=== PATIENT | male | born 1930 | race American Indian/Alaskan Native ===

== ENCOUNTER 2018-01-03 11:21 | Inpatient (IN) | payer MEDICARE ==
--- NOTE | 2018-01-03 12:10 | C.PDOC ---
History Of Present Illness 87 y/o male,w/PMhx of HTN, presents to the ER for evaluation after he was referred to the ER by his PMD, Dr. Bell secondary to bradycardia. Patient states that he went to Dr. Bell for a routine check up today and he was found to have bradycardia. Denies having CP, SOB, nausea, vomiting, diarrhea, and recent changes in medications. Time Seen by Provider: 01/03/18 11:37 Chief Complaint (Nursing): Medical Clearance History Per: Patient History/Exam Limitations: no limitations Onset/Duration Of Symptoms: Hrs Current Symptoms Are (Timing): Still Present Severity: Moderate Past Medical History Reviewed: Historical Data, Nursing Documentation, Vital Signs Vital Signs: Last Vital Signs Temp 98.7 F 01/03/18 11:25 Pulse 46 L 01/03/18 11:25 Resp 16 01/03/18 11:25 BP 198/89 H 01/03/18 11:25 Pulse Ox 97 01/03/18 12:34 - Medical History PMH: HTN Surgical History: No Surg Hx Family History: States: No Known Family Hx - Social History Hx Alcohol Use: Yes Hx Substance Use: No Review Of Systems Except As Marked, All Systems Reviewed And Found Negative. Cardiovascular: Positive for: Other (bradycardia). Negative for: Chest Pain Respiratory: Negative for: Shortness of Breath Gastrointestinal: Negative for: Nausea, Vomiting, Diarrhea Physical Exam - Physical Exam Appears: Non-toxic, No Acute Distress Skin: Normal Color, Warm, Dry Head: Atraumatic, Normacephalic Eye(s): bilateral: Normal Inspection Nose: Normal Oral Mucosa: Moist Neck: Supple Chest: Symmetrical Cardiovascular: Rhythm Irregular (bradycardia) Respiratory: Normal Breath Sounds, No Rales, No Rhonchi, No Wheezing Gastrointestinal/Abdominal: Normal Exam, Soft, No Tenderness, No Guarding, No Rebound Extremity: Normal ROM Neurological/Psych: Oriented x3, Normal Speech ED Course And Treatment - Laboratory Results Result Diagrams: 01/03/18 11:55 01/03/18 11:55 O2 Sat by Pulse Oximetry: 97 Medical Decision Making Medical Decision Making: Assessment: Bradycardia Plan: --Labs --CXR Updates: Case discussed with Dr. Bell. Patient will be admitted to [facility] under the service of . Disposition Discussed With : Helio Bell Doctor Will See Patient In The: Hospital Counseled Patient/Family Regarding: Studies Performed, Diagnosis - Disposition Disposition: HOSPITALIZED Disposition Time: 12:10 Condition: FAIR - Clinical Impression Clinical Impression: Bradycardia - Scribe Statement The provider has reviewed the documentation as recorded by the Scribe Wojciech Luther Provider Attestation: All medical record entries made by the Scribe were at my direction and personally dictated by me. I have reviewed the chart and agree that the record accurately reflects my personal performance of the history, physical exam, medical decision making, and the department course for this patient. I have also personally directed, reviewed, and agree with the discharge instructions and disposition.
[2018-01-03 12:15] LABS: BASO % 0.9 % (0.0-2.0); EOS # 0.2 K/uL (0.0-0.7); EOS % 5.1 % (0.0-4.0); HEMOGLOBIN 13.4 g/dL (12.0-18.0); LYMPH # 1.6 K/uL (1.0-4.3); LYMPH % 41.2 % (20.0-40.0); MEAN CELL VOLUME 84.5 fL (80.0-94.0); MEAN CORPUSCULAR HEMOGLOBIN 28.6 pg (27.0-31.0); MEAN CORPUSCULAR HGB CONC 33.8 g/dL (33.0-37.0); MEAN PLATELET VOLUME 7.7 fL (7.2-11.7); MONO # 0.4 K/uL (0.0-0.8); MONO % 11.2 % (0.0-10.0); NEUT # 1.6 K/uL (1.8-7.0); NEUT % 41.6 % (50.0-75.0); NRBC % 0.1 % (0.0-2.0); RBC 4.68 Mil/uL (4.40-5.90); RED CELL DISTRIBUTION WIDTH 14.3 % (11.5-14.5); WHITE BLOOD COUNT 3.9 K/uL (4.8-10.8)
[2018-01-03 12:23] LABS: INR 1.6; PROTHROMBIN TIME 17.4 SECONDS (9.7-12.2)
[2018-01-03 12:32] LABS: GFR AFRICAN-AMERICAN > 60; GFR NON-AFRICAN AMERICAN > 60
[2018-01-03 12:34] LABS: ALB/GLOB RATIO 1.4 (1.0-2.1); ALBUMIN 4.3 g/dL (3.5-5.0); ALT/SGPT 12 U/L (21-72); AST/SGOT 32 U/L (17-59); BLOOD UREA NITROGEN 11 mg/dL (9-20)
[2018-01-03 12:42] LABS: B-TYPE NATRIURETIC PEPTIDE 404 pg/mL (0-900)
--- NOTE | 2018-01-03 13:45 | RAD ---
PROCEDURE: CHEST RADIOGRAPH, 1 VIEW HISTORY: Shortness of breath COMPARISON: None available. FINDINGS: LUNGS: The lungs are well inflated and clear. PLEURA: No pneumothorax or pleural fluid seen. CARDIOVASCULAR: Normal. OSSEOUS STRUCTURES: There is diffuse bone demineralization. There are old fracture deformities in the left mid posterior ribs. VISUALIZED UPPER ABDOMEN: Normal. OTHER FINDINGS: None. IMPRESSION: No active pulmonary disease.
[2018-01-03 19:56] LABS: CK-MB 0.65 ng/mL (0.0-3.38); TROPONIN I 0.017 ng/mL (0.00-0.120)
--- NOTE | 2018-01-03 23:47 | CP.PCM.HP ---
History of Present Illness - History of Present Illness History of Present Illness: 87 y/o male,w/PMhx of HTN, presents to the ER for evaluation after he was referred to the ER by his PMD, Dr. Bell secondary to bradycardia. Patient states that he went to Dr. Bell for a routine check up today and he was found to have bradycardia. Denies having CP, SOB, nausea, vomiting, diarrhea, and recent changes in medications. Past Patient History - Past Social History Smoking Status: Never Smoked - CARDIAC Hx Hypertension: Yes - PSYCHIATRIC Hx Substance Use: No Meds Allergies/Adverse Reactions: Allergies Allergy/AdvReac Type Severity Reaction Status Date / Time No Known Allergies Allergy Verified 01/03/18 11:28 Results - Vital Signs Recent Vital Signs: Last Vital Signs Temp 98.0 F 01/03/18 15:25 Pulse 53 L 01/03/18 18:00 Resp 20 01/03/18 15:25 BP 169/85 H 01/03/18 15:25 Pulse Ox 99 01/03/18 15:25 - Labs Result Diagrams: 01/03/18 11:55 01/03/18 11:55 Labs: Laboratory Results - last 24 hr 01/03/18 01/03/18 01/03/18 11:55 11:55 11:55 WBC 3.9 L RBC 4.68 Hgb 13.4 Hct 39.6 MCV 84.5 MCH 28.6 MCHC 33.8 RDW 14.3 Plt Count 168 MPV 7.7 Neut % (Auto) 41.6 L Lymph % (Auto) 41.2 H Cloud % (Auto) 11.2 H Eos % (Auto) 5.1 H Baso % (Auto) 0.9 Neut # (Auto) 1.6 L Lymph # (Auto) 1.6 Cloud # (Auto) 0.4 Eos # (Auto) 0.2 Baso # (Auto) 0.0 PT 17.4 H INR 1.6 APTT 70 H Sodium 141 Potassium 4.5 Chloride 104 Carbon Dioxide 30 Anion Gap 12 BUN 11 Creatinine 0.8 Est GFR ( Amer) > 60 Est GFR (Non-Af Amer) > 60 Random Glucose 114 H Calcium 9.0 Total Bilirubin 1.3 AST 32 ALT 12 L Alkaline Phosphatase 62 Total Creatine Kinase CK-MB (Mass) Troponin I 0.0160 NT-Pro-B Natriuret Pep 404 Total Protein 7.3 Albumin 4.3 Globulin 3.0 Albumin/Globulin Ratio 1.4 Prostate Specific Ag TSH 3rd Generation 01/03/18 19:24 WBC RBC Hgb Hct MCV MCH MCHC RDW Plt Count MPV Neut % (Auto) Lymph % (Auto) Cloud % (Auto) Eos % (Auto) Baso % (Auto) Neut # (Auto) Lymph # (Auto) Cloud # (Auto) Eos # (Auto) Baso # (Auto) PT INR APTT Sodium Potassium Chloride Carbon Dioxide Anion Gap BUN Creatinine Est GFR ( Amer) Est GFR (Non-Af Amer) Random Glucose Calcium Total Bilirubin AST ALT Alkaline Phosphatase Total Creatine Kinase 93 CK-MB (Mass) 0.65 Troponin I 0.0170 NT-Pro-B Natriuret Pep Total Protein Albumin Globulin Albumin/Globulin Ratio Prostate Specific Ag 7.22 H TSH 3rd Generation 1.99
[2018-01-04 00:52] LABS: CK-MB 0.52 ng/mL (0.0-3.38); TROPONIN I 0.022 ng/mL (0.00-0.120)
--- NOTE | 2018-01-04 04:30 | CON ---
DATE: 01/03/2018 CARDIOLOGY CONSULTATION REASON FOR CONSULTATION: Sinus bradycardia. HISTORY OF PRESENT ILLNESS: The patient is an 87 years old male who has a history of hypertension, no known prior cardiac history who was referred by Dr. Bell from his office because of hypertension and sinus bradycardia. The patient himself denies any history of dizziness or syncope. The patient's visit to Dr. Bell's office was months, and he had no medical urgency that made him to present to the office. SOCIAL HISTORY: The patient is a nonsmoker. He used to drink in the past. He will go up on a farm in [place], and now he is living in [place] with his nephew. MEDICATIONS: The patient's home medications include simvastatin 10 mg once a day, Pepcid 20 mg once a day, valsartan/hydrochlorothiazide 160/12.5 mg once a day, Pradaxa 150 mg once a day, tramadol 50 mg once a day, metoprolol 50 mg p.o. twice a day. REVIEW OF SYSTEMS: No nausea or vomiting. No fever or chills. No dizziness or syncope. No retrosternal chest pain. PHYSICAL EXAMINATION: GENERAL: The patient is an elderly male who does not appear to be in acute distress. VITAL SIGNS: Blood pressure 169/85, heart rate 48, temperature 98, and respirations 20. HEENT: Normocephalic. CHEST: Clear. HEART: S1, S2 are regular. ABDOMEN: Soft. EXTREMITIES: No edema. LABORATORY DATA: INR is 1.6, PTT 70. SMA-7: Sodium 141, potassium 4.5, chloride 104, CO2 of 30, glucose 114, BUN 11, creatinine 0.8. One set of troponin is negative. Hemoglobin and hematocrit 13.4 and 39.6, white count 3.9, and platelet count 168,000. EKG reveals sinus bradycardia at the rate of 44 and anterolateral ischemic T-wave changes. ASSESSMENT: 1. Uncontrolled hypertension. 2. Sinus bradycardia, could be iatrogenic. 3. Ischemic anterolateral EKG changes consist underlying coronary artery disease. 4. Questionable history of atrial fibrillation. The patient is on Pradaxa at home 150 mg daily. 5. History of arthritis. RECOMMENDATIONS: Discontinue Lopressor. Continue simvastatin. Resume valsartan/hydrochlorothiazide. Obtain TSH level. Schedule the patient for an echocardiogram. Obtain one more set of troponin and start Lovenox 30 mg subcutaneously daily. Woodrow Sosa MD
[2018-01-04] MEDS: FINASTERIDE 5 MG PO SCH (09:42)
[2018-01-04] MEDS: LOSARTAN 100MG PO SCH (09:42)
[2018-01-04] MEDS: TIMOLOL MALEATE 0.5% OD SCH (09:43)
[2018-01-04] MEDS: Dorzolamide 2% Opht Sol 10ml OU SCH ×3 (09:43→17:34)
[2018-01-04] MEDS: LATANOPROST OD SCH (09:44)
[2018-01-04 16:15] VITALS: RESP 20
[2018-01-04] MEDS: Rosuvastatin Calcium 2.5 mg Tab PO SCH (21:31)
--- NOTE | 2018-01-04 23:29 | CARD ---
APPROVED REPORT EKG Measurement Heart [id number] [place] [id number] [id number] <Conclusion> Marked sinus bradycardia Left anterior fascicular block ST & T wave abnormality, consider anterolateral ischemia Abnormal ECG
--- NOTE | 2018-01-04 23:45 | CARD ---
APPROVED REPORT EKG Measurement Heart [id number] [id number] <Conclusion> Sinus bradycardia Possible Left atrial enlargement Left axis deviation Left ventricular hypertrophy with repolarization abnormality Abnormal ECG
--- NOTE | 2018-01-04 23:56 | PN ---
DATE: 01/04/2018 FOLLOWUP SUBJECTIVE: The patient denies any dizziness. The patient is bradycardic in the 50s. PHYSICAL EXAMINATION: VITAL SIGNS: Blood pressure 151/99, heart rate 60, temperature 98.3, respirations 20. HEENT: Normocephalic. CHEST: Clear. HEART: S1, S2 are regular. ABDOMEN: Soft. EXTREMITIES: No edema. LABORATORY DATA: Three sets of troponins are negative. Prostate-specific antigen is elevated at 7.22. ASSESSMENT: 1. Uncontrolled hypertension. 2. Sinus bradycardia. The patient was on oral beta roshni agent at home and currently on timolol eyedrops. 3. History of paroxysmal atrial fibrillation in the past. 4. Abnormal EKG with evidence of anterolateral ischemic EKG changes. RECOMMENDATIONS: Continue Cozaar 100 mg daily which was increased today. Continue Crestor 2.5 mg once a day, hydrochlorothiazide 12.5 mg daily, Pepcid 20 mg p.o. once a day, Proscar 5 mg once a day. I have reviewed the echocardiography study which was performed today. The case was discussed with the patient's stepdaughter who is at the bedside to instruct her not to go back to his metoprolol therapy which he has at home. Woodrow Sosa MD
[2018-01-05] MEDS ORDERED: Magnesium Hydroxide Susp 30 ml UD PO ONE (00:49)
[2018-01-05] MEDS: Dorzolamide 2% Opht Sol 10ml OU SCH ×3 (09:16→17:43)
[2018-01-05] MEDS: TIMOLOL MALEATE 0.5% OD SCH (09:20)
[2018-01-05] MEDS: LATANOPROST OD SCH (09:20)
[2018-01-05] MEDS: LOSARTAN 100MG PO SCH (09:21)
[2018-01-05] MEDS: FINASTERIDE 5 MG PO SCH (09:21)
--- NOTE | 2018-01-05 20:25 | PN ---
DATE: 01/05/2018 SUBJECTIVE: The patient is eating his lunch. He denies any chest pain, dizziness or palpitation. The lowest reported heart rate yesterday was 48. PHYSICAL EXAMINATION: VITAL SIGNS: Blood pressure 132/70, heart rate 71, temperature 97.9, respirations 20. HEENT: Normocephalic. CHEST: Clear. HEART: S1, S2, regular. ABDOMEN: Soft. EXTREMITIES: No edema. ASSESSMENT: 1. Improved sinus bradycardia. 2. History of paroxysmal atrial fibrillation. 3. Systemic hypertension. 4. Abnormal electrocardiogram with evidence of anterolateral ischemic ST-T wave changes. RECOMMENDATIONS: Continue Cozaar 100 mg once a day, Crestor 2.5 mg once a day, hydrochlorothiazide 12.5 mg once a day, Pradaxa 250 mg once a day, Pepcid 20 mg p.o. once a day, Proscar 5 mg once a day, Ultram 50 mg p.o. twice a day. Future use of beta blockers will be discontinued. Woodrow Sosa MD
[2018-01-05] MEDS ORDERED: LATANOPROST OD SCH (22:00)
[2018-01-05] MEDS: Rosuvastatin Calcium 2.5 mg Tab PO SCH (22:48)
--- NOTE | 2018-01-05 23:48 | CARD ---
APPROVED REPORT EXAM: Two-dimensional and M-mode echocardiogram with Doppler and color Doppler. Other Information Quality : GoodRhythm : Bradycardia RISK FACTORS Hypertension 2D DIMENSIONS IVSd1.1 (0.7-1.1cm)LVDd4.6 (3.9-5.9cm) PWd1.1 (0.7-1.1cm)LVDs2.7 (2.5-4.0cm) FS (%) 40.8 %LVEF (%)71.6 (>50%) M-Mode DIMENSIONS Left Atrium (MM)3.77 (2.5-4.0cm)IVSd1.13 (0.7-1.1cm) Aortic Root4.30 (2.2-3.7cm)LVDd4.56 (4.0-5.6cm) Aortic Cusp Exc.2.46 (1.5-2.0cm)PWd0.92 (0.7-1.1cm) FS (%) 20 %LVDs3.64 (2.0-3.8cm) LVEF (%)65 (>50%) Aortic Valve AoV Peak Dywwxbts62.9cm/Ainsley Peak GR.4mmHgAI P 1/2 [id number] Mitral Valve MV E Kggzgozo04.1cm/sMV A Vyhfqfwz66.4cm/sE/A ratio0.5 TDI E/Lateral E'0.0E/Medial E'0.0 Tricuspid Valve TR Peak Frqgmoon716dr/sTR Peak Gr.[id number] LEFT VENTRICLE The left ventricle is normal size. There is normal left ventricular wall thickness. Left ventricle systolic function is normal. The Ejection Fraction is >70%. There is normal LV segmental wall motion. Tissue Doppler imaging reveals abnormal left ventricular diastolic dysfunction. RIGHT VENTRICLE The right ventricle is normal size. There is normal right ventricular wall thickness. The right ventricular systolic function is normal. ATRIA The left atrium size is normal. The right atrium size is normal. The interatrial septum is intact with no evidence for an atrial septal defect. AORTIC VALVE The aortic valve is normal in structure. No aortic regurgitation is present. There is no aortic valvular stenosis. There is no aortic valvular vegetation. MITRAL VALVE The mitral valve is normal in structure. There is no evidence of mitral valve prolapse. There is no mitral valve stenosis. Mitral regurgitation is mild. TRICUSPID VALVE The tricuspid valve is normal in structure. There is mild tricuspid regurgitation. Right ventricular systolic pressure is estimated at 30-40 mmHg. There is mild pulmonary hypertension. PULMONIC VALVE The pulmonic valve is not well visualized. There is mild pulmonic valvular regurgitation. GREAT VESSELS The aortic root is mildly enlarged. PERICARDIAL EFFUSION There is no significant pericardial effusion. <Conclusion> Left ventricle systolic function is normal. The Ejection Fraction is >70%. Diastolic dysfunction. No aortic regurgitation is present. Mitral regurgitation is mild. There is mild tricuspid regurgitation. There is mild pulmonary hypertension. There is mild pulmonic valvular regurgitation.
[2018-01-06 01:18] VITALS: O2SAT 96
[2018-01-06 08:53] VITALS: BP 145/85; TEMP 97.9
[2018-01-06] MEDS: FINASTERIDE 5 MG PO SCH (09:43)
[2018-01-06] MEDS: LOSARTAN 100MG PO SCH (09:43)
[2018-01-06] MEDS: Dorzolamide 2% Opht Sol 10ml OU SCH ×2 (09:44→14:11)
[2018-01-06] MEDS: TIMOLOL MALEATE 0.5% OD SCH (09:44)
[2018-01-06 12:11] VITALS: PULSE 59
--- NOTE | 2018-01-06 15:27 | CP.PCM.PN ---
Subjective - Date & Time of Evaluation Date of Evaluation: 01/06/18 Time of Evaluation: 11:00 - Subjective Subjective: Patient seen today, denies any chest pain, sob, headache, palpitations, dizziness, n/v HR improved after discontinuation of betablocker - HR in 60,s no overnight events recorded on monitor Objective - Vital Signs/Intake and Output Vital Signs (last 24 hours): Temp Pulse Resp BP Pulse Ox 97.9 F 59 L 20 145/85 96 01/06/18 07:30 01/06/18 12:00 01/06/18 07:30 01/06/18 07:30 01/06/18 07:30 - Medications Medications: Current Medications Dabigatran (Pradaxa) 150 mg PO DAILY [facility] Last Admin: 01/06/18 09:43 Dose: 150 mg Dorzolamide HCl (Trusopt) 0 ml OU TID [facility] Last Admin: 01/06/18 14:11 Dose: 1 drop Famotidine (Pepcid) 20 mg PO DAILY [facility] Last Admin: 01/06/18 09:43 Dose: 20 mg Finasteride (Proscar) 5 mg PO DAILY [facility] Last Admin: 01/06/18 09:43 Dose: 5 mg Hydrochlorothiazide (Microzide) 12.5 mg PO DAILY [facility] Last Admin: 01/06/18 09:43 Dose: 12.5 mg Latanoprost (Xalatan Opht) 0 ml OD HS [facility] Last Admin: 01/05/18 22:50 Dose: 2.5 ml Losartan Potassium (Cozaar) 100 mg PO DAILY [facility] Last Admin: 01/06/18 09:43 Dose: 100 mg Rosuvastatin Calcium (Crestor) 2.5 mg PO HS [facility] Last Admin: 01/05/18 22:48 Dose: 2.5 mg Timolol Maleate (Timoptic 0.5% Ophth Soln) 0 drop OD DAILY [facility] Last Admin: 01/06/18 09:44 Dose: 1 drop Tramadol HCl (Ultram) 50 mg PO BID PRN PRN Reason: Pain, moderate (4-7) - Labs Labs: 01/03/18 11:55 01/03/18 11:55 PT 17.4 SECONDS (9.7-12.2) H 01/03/18 11:55 INR 1.6 01/03/18 11:55 APTT 70 SECONDS (21-34) H 01/03/18 11:55 - Constitutional Appears: Well, No Acute Distress - Respiratory Exam Respiratory Exam: Clear to Ausculation Bilateral, NORMAL BREATHING PATTERN - Cardiovascular Exam Cardiovascular Exam: REGULAR RHYTHM, +S1, +S2 - Neurological Exam Neurological Exam: Alert, Awake, Oriented x3 Assessment and Plan - Assessment and Plan (Free Text) Assessment: A/P 87 y/o male,w/PMhx of HTN, sent to ER from Dr. Bell office for evaluation for symptomatic bradycardia Patient HR on admission was in 40"s and metoprolol discontinued Dr. Sosa cardiology on consult Patient HR improved after discontinuation of metoprolol - now in 60"s D/W Dr. Sosa, cleared fro discharge from cardiology standpoint D/W Dr. Bell, stable for discharge home today and f/u with Dr. Bell office in 1 week Discharge plan discussed with patient and step daughter , who understands and agrees with plan Call placed to Dr. 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 Bills and Dr. Bajwa office. patient instructed to returns to ED or call Dr. Bell if symptoms returns
--- NOTE | 2018-01-06 18:48 | PN ---
DATE: 01/06/2018 SUBJECTIVE: The patient denies dizziness or palpitation. He denies any chest pain or headache. PHYSICAL EXAMINATION: VITAL SIGNS: Blood pressure 145/85, heart rate 68, temperature 97.9, and respirations 20. HEENT: Normocephalic. CHEST: Clear. HEART: S1 and S2 regular. ABDOMEN: Soft. EXTREMITIES: No edema. ASSESSMENT AND PLAN: 1. Improved sinus bradycardia. 2. Systemic hypertension. 3. History of paroxysmal atrial fibrillation. 4. Abnormal electrocardiogram with evidence of anterolateral ischemic ST-T wave changes. RECOMMENDATIONS: Continue Cozaar 500 mg once a day, Crestor 2.5 mg once a day, hydrochlorothiazide 12.5 mg daily, and Plavix mg once a day. I did write the name of Lopressor/metoprolol to the patient's stepdaughter to eliminate this medicine from his home medication list. Case was discussed yesterday with the primary physician Dr. Helio Bell. Woodrow Sosa MD
== END 2018-01-06 16:15 | disposition home or self-care (01) | DRG 310 ==
LOC: C.ER 11:21 → C.9E 12:09 → C.5S 13:38 → C.9E 14:15 → C.6T 14:24 → OBSVTOIN 01-05 19:35
PROVIDERS: ADMIT Internal Medicine; ATTEND Internal Medicine
DX: R00.1 Bradycardia, unspecified (principal); I48.0 Paroxysmal atrial fibrillation; I25.10 Atherosclerotic heart disease of native coronary artery without angina pectoris; I10 Essential (primary) hypertension; Z79.01 Long term (current) use of anticoagulants